=== PATIENT | female | born 1975 | race American Indian/Alaskan Native ===

== ENCOUNTER 2017-01-19 12:05 | Outpatient (CLI) | payer OTHER ==
--- NOTE | 2017-01-19 12:27 | XRay Report ---
Cervical spine 3 views: History: Cervical age. Findings: Normal height of vertebral bodies and intervertebral disc. Normal articular surfaces. Normal prevertebral soft tissue. No fracture. Impression: No bony or articular abnormality cervical spine.
== END 2017-01-19 12:06 | disposition home or self-care (01) ==
LOC: SPVIMAG 12:05
PROVIDERS: ATTEND Family Medicine
DX: M54.2 Cervicalgia (principal)
CPT/HCPCS: 72040